=== PATIENT | male | born 1980 | race Caucasian/White ===

== ENCOUNTER → 2022-07-07 14:43 | Outpatient (BNVA) | payer OTHER, SELFPAY | PROVIDERS: PCP Internal Medicine; Visit Provider Nurse Practitioner Family ==

== ENCOUNTER → 2022-07-28 20:27 | Outpatient (REF) | payer OTHER, SELFPAY | LOC: HO.SL 20:27 | PROVIDERS: PCP Internal Medicine; Visit Provider Nurse Practitioner Family | DX: G47.33 Obstructive sleep apnea (adult) (pediatric) (principal); G47.52 REM sleep behavior disorder; F51.4 Sleep terrors [night terrors] | CPT/HCPCS: 95810 ==

== ENCOUNTER 2023-02-20 12:46 | Outpatient (REF) | payer BC, SELFPAY ==
[2023-02-20 13:03] LABS: MANUAL DIFF FLAG NO
[2023-02-20 13:14] LABS: Basophils Absolute Auto 0.1 X10*3/uL (0.0-0.2); Basophils Percent Auto 0.8 % (0-2); Eosinophils Absolute Auto 0.1 X10*3/uL (0.0-0.4); Eosinophils Percent Auto 1.6 % (0-4); Hematocrit 46.6 % (42.0-52.0); Hemoglobin 16.2 g/dl (14.0-18.0); Imm Gran Abs Auto 0.04 X10*3/uL (0.00-0.03); Imm Gran Pct Auto 0.5 % (0.0-0.4); Lymphocytes Absolute Auto 2.1 X10*3/uL (1.2-4.9); Lymphocytes Percent Auto 26.5 % (20-40); Mean Corpuscular HGB Conc 34.8 g/dl (31.0-36.0); Mean Corpuscular Volume 83.5 fL (80.0-98.0); Mean Platelet Volume 9.7 fL (9.4-12.4); Monocytes Absolute Auto 0.4 X10*3/uL (0.1-1.2); Monocytes Percent Auto 5.3 % (2-11); Neutrophils Absolute Auto 5.2 x10*3/uL (2.0-8.3); Neutrophils Percent Auto 65.3 % (45-73); Platelet Count 219 X10*3/uL (160-400); Red Blood Count 5.58 X10*6/uL (4.60-5.80)
[2023-02-20 13:57] LABS: Alanine Aminotransferase 31 U/L (0-40); Albumin Level 4.6 g/dL (3.5-5.0); Alkaline Phosphatase 119 U/L (39-117); Anion Gap 11 (12-20); Aspartate Amino Transferase 25 U/L (5-37); Bilirubin Total 0.9 mg/dL (0.0-1.0); Blood Urea Nitrogen 8 mg/dL (9-16); Calcium 9.9 mg/dL (8.4-10.2); Carbon Dioxide 30 mmol/L (22-29); Chloride 103 mmol/L (96-108); Estimated Glomerular Filt Rate > 60; Glucose Fasting 107 mg/dL (60-99); Potassium 4.2 mmol/L (3.3-5.1); Sodium 140 mmol/L (135-145); Total Protein 8.1 g/dL (6.5-8.0)
[2023-02-20 14:06] LABS: Free T4 (Free Thyroxine) 0.74 ng/dL (0.71-1.85); Thyroid Stimulating Hormone 1.67 uIU/mL (0.32-4.0); Vitamin D 25-OH Total 8.3 ng/mL (>30)
[2023-02-20 14:09] LABS: Vitamin B12 251 pg/mL (200-900)
[2023-02-23 02:54] LABS: Zinc 87 mcg/dL (60-130)
== END 2023-02-20 12:47 | disposition home or self-care (01) ==
LOC: HO.LAB 12:46
PROVIDERS: Visit Provider Psychiatry & Neurology Psychiatry
DX: F32.9 Major depressive disorder, single episode, unspecified (principal)
CPT/HCPCS: 36415; 80053; 82306; 82607; 84439; 84443; 84630; 85025

== ENCOUNTER → 2023-02-24 13:56 | Outpatient (REF) | payer BC, SELFPAY ==
--- NOTE | 2023-02-24 14:09 | ECG_ITS ---
Test Reason : QTC CHECK Blood Pressure : / mmHG Vent. Rate : 077 BPM Atrial Rate : 077 BPM P-R Int : 174 ms QRS Dur : 088 ms QT Int : 368 ms P-R-T Axes : 070 037 049 degrees QTc Int : 416 ms Normal sinus rhythm Normal ECG No previous ECGs available Referred By: Nicolette Rubio Electronically Signed By:CHUCHO JOHNSON
== END ==
LOC: HO.CARD 13:56
PROVIDERS: Visit Provider Psychiatry & Neurology Psychiatry
DX: F33.1 Major depressive disorder, recurrent, moderate (principal); F41.1 Generalized anxiety disorder
CPT/HCPCS: 93005

== ENCOUNTER → 2023-02-24 14:09 | Outpatient (BNV) | payer BC, SELFPAY | PROVIDERS: Visit Provider Internal Medicine | DX: I45.81 Long QT syndrome (principal) | CPT/HCPCS: 93010 ==

== ENCOUNTER 2023-02-27 11:40 | Outpatient (REF) | payer BC, SELFPAY ==
[2023-02-27 12:44] LABS: Estimated Average Glucose 100 mg/dL; Hemoglobin A1c % 5.1 % (<6.0)
[2023-02-27 13:08] LABS: Cholesterol 182 mg/dL (<200); Gamma Glutamyl Transpeptidase 68 U/L (11-51); HDL Cholesterol 37 mg/dL (>40); LDL Cholesterol Calculated 112 mg/dL (<100); Triglycerides 166 mg/dL (<150)
== END 2023-02-27 11:41 | disposition home or self-care (01) ==
LOC: HO.LAB 11:40
PROVIDERS: PCP Internal Medicine; Visit Provider Psychiatry & Neurology Psychiatry
DX: F33.1 Major depressive disorder, recurrent, moderate (principal); F41.1 Generalized anxiety disorder
CPT/HCPCS: 36415; 80061; 82977; 83036

== ENCOUNTER → 2023-02-28 09:15 | Outpatient (BNV) | payer BC, SELFPAY | PROVIDERS: Visit Provider Psychiatry & Neurology Psychiatry | DX: F33.1 Major depressive disorder, recurrent, moderate (principal); F41.1 Generalized anxiety disorder; G47.33 Obstructive sleep apnea (adult) (pediatric) | CPT/HCPCS: 90792; 99213; 99214 ==

== ENCOUNTER 2023-03-07 10:15 | Outpatient (RCR) | payer BC, SELFPAY ==
[2023-02-15 11:58] VITALS: BMI 27.4
--- NOTE | 2023-02-15 13:01 | PC.ADMIT ---
Patient is a 42 year old male who was referred to [facility] by [facility] where he was admitted from 02/07-02/11/23 d/t increased depression, severe anxiety, and experiencing night terrors where he has fallen out of bed as a result. Patient reports many triggers including father passing, roommate moving out, and new job where he stated he does not feel confident in himself and he is afraid to make mistakes as he is a perfectionist. Patient stated he was going out with friends on Fridays and would drink 8 drinks when he is feeling better however has not done this in a few months d/t his mental health symptoms. He was educated verbally and was given written information on ETOH and his health and binge drinking. Patient is currently on FMLA from work d/t symptoms and is at [facility] to work on his mental health. He reviewed with me some medication changes including he is tapering off of Celexa and is on new medication Wellbutrin. He reports taking medications as prescribed. Patient also has a f/u appointment with his PCP on 02/27/23 regarding HTN as he saw his PCP last Monday and reports his BP was elevated. Current BP 150/96 P 80. Patient is alert and oriented x4. calm and cooperative. Presented with depressed mood and anxious affect. Denied SI or thoughts of harming himself. He was given a copy of his safety plan if needed. Medications reconciled with patient and paperwork from [facility] with active orders dated 02/11/22 and confirmed with patient. He reports taking medications as prescribed.
[2023-02-15 13:02] VITALS: BP 150/96; PULSE 80
--- NOTE | 2023-02-16 17:36 | HO.PHP ---
Clients case has been opened and reviewed in treatment teams.
--- NOTE | 2023-02-16 18:04 | P.HPPSP_ITS ---
HPI Date of Service: 02/16/23 Chief Complaint: anxiety Sources of Information: patient interviewed, chart reviewed and crisis/core team assessment reviewed HPI Narrative: Patient is a 42 year old male with history of anxiety, depression who reports exacerbation in recent months related to work stressors and parental loss. He is known to [facility] for outpatient MH treatment and is being stepped up to [facility] from recent stay at [facility] where he was started on Wellbutrin XL 150 mg. He is currently working with an outpatient therapist and anticipates meeting with his new psychiatric provider tomorrow at 2pm. He reports working at [employer] since 08/2022 which has been a huge source of anxiety and stress, working outside of his comfort zone. Reports a lot of generalized anxiety, overthinking, as well as feeling stressed, muscle tension, exhaustion, describes feeling demoralized, experiencing negative self thoughts, cognitive distortions, catastrophizing and feeling overly concerned about being judged by others. 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 Reports severe depression which he contributes to recent loss of his father and feeling like a failure due to struggles at his current job, but denies any thoughts of giving up on life or harming self or others. He was recently seen by a provider during a stay at [facility] from 02/07 to 02/11 after being referred there from [facility]. He had been on citalopram 40 mg (since September) which was not effective, and the provider at [facility] switched him over to Wellbutrin XL. He gradually tapered off the citalopram this past week and is on his last dose of 20 mg. He has not noticed any considerable benefits yet on the Wellbutrin XL 150 mg, but complains of some tiredness. It is unclear why this medication was chosen (he does not have a history of ADHD, nor considerable depressive symptoms) nonetheless we agree to give it another week seeing as it does not seem to be worsening his anxiety or sleep. He was also ntoed to be started on prazosin 2 mg qhs for night terrors (kicks and punches in his sleep). He denies any trauma or PTSD symptoms. He has not foudn this medication so far. Past Psychiatric History: No history of IP hospitalizations, PHP or detox admissions Denies hx of suicide attempts, suicidal or self harming behaviors. He does not usually struggle with SI Denies hx of aggression Upcoming appointment with new psych provider - Marla Shin CNP - tomorrow afternoon Connected with outpatient therapy Previous med trials: citalopram, sertraline, diazepam CURRENT MEDICATIONS: Wellbutrin XL 150 mg qAM prazosin 2 mg qhs hydroxyzine 50 mg PRN sleep, anxiety [facility] Medical History (Updated 03/03/23 @ 08:55 by Darline Mayers RN) History of vitamin D deficiency GERD (gastroesophageal reflux disease) Elevated blood pressure reading Sleep apnea Surgical History (Updated 07/07/22 @ 14:55 by [place]) Hx of appendectomy Family History: father passed from heart disease, no MH hx Social History: Lives at home with parents. His parents winter in [place] although his father unexpectedly 11/30, mom has remained in [place] since then. Graduated HS 1998, spent a year at [employer] in [place], had a good experience but did not like living away from home. He has since moved back home and completed college online at [employer] in 01/2003. Substance History: Alcohol use: socially on occasion, denies drinking regularly. denies binging, denies hx withdrawals or DTs, no DUIs. last use a couple weeks ago Nicotine use: varies, uses socially, or periods when stressed. not regular. last time a few days ago Cannabis use: infrequent, once every few months. last time >2 months ago Remote cocaine use recreational, denies other illicit substances. No IVDA Trauma History: Reports still grieving recent loss of his father 11/2022 Diagnostics Vital Signs (24Hr): BMI result Body Mass Index 27.4 Meds/Allergies Meds Home Medications Medication Instructions Recorded Confirmed Type omeprazole 20 mg capsule,delayed 20 mg PO DAILY 07/07/22 02/15/23 History release cholecalciferol (vitamin D3) 25 25 mcg PO DAILY 02/15/23 02/15/23 History mcg (1,000 unit) capsule (Vitamin D3) Allergies Allergies Allergy/AdvReac Type Severity Reaction Status Date / Time No Known Allergies Allergy Verified 07/07/22 14:54 Mental Status Exam Mental Status Exam Narrative: Alert, oriented, in no acute distress. Calm, cooperative, engaged. No psychomotor agitation or neurovegetative retardation. Eye contact maintained. Mood anxious, depressed, affect variable, brighter than expected. Speech normal. Thought process linear, coherent. Thought content related to stressors, transient hopelessness, denies SI or HI. No paranoia or delusional content elicited. No evidence of psychosis. Insight and judgment impaired. Assessment & Plan Assessment & Plan (1) MDD (major depressive disorder), recurrent episode, moderate: Status: Acute Code(s): F33.1 - Major depressive disorder, recurrent, moderate (2) ARMANDO (generalized anxiety disorder): Status: Acute Code(s): F41.1 - Generalized anxiety disorder Plan Admit to [facility] continue reguular medications for now pt scheduled with new outpatient psych provider, appointment on Monday routine lab work ordered ASRS reviewed continue to monitor as per protocol Patient educated on: diagnosis, medication risk/benefits and substance abuse Informed Consent: understands Reason for continued partial hosp. stay Substantial Risk for: inability to function, rapid decompensation and med/psych decompensation Certification I certify that partial hospital treatment is medically necessary due to the symptoms and problems resulting from the patient's mental illness and the failure to treat the patient at the partial hospital level of care would likely result in the patient requiring inpatient psychiatric care which could not be prevented at a less intensive level of care. Time Spent With Patient Time: Total time managing care of this patient today _60___ minutes.
--- NOTE | 2023-02-21 08:14 | HO.PHP ---
Ignacio contacted the program to inform staff that he would not be in attendance to program due to the inclement weather. Ignacio reported no SI,plan or intent and stated he is safe. Ignacio will be in attendance to program tomorrow.
[2023-02-24 15:11] VITALS: BP 166/105; PULSE 81; RESP 16
--- NOTE | 2023-02-24 22:23 | P.PNPSP_ITS ---
Subjective Subjective Date of Service: 02/24/23 Reason For Visit: anxiety Interim History: I still feel very anxious Patient reports groups are helpful and enjoys coming but admits he is really struggling with his anxiety and reflecting on our discussion last week; he has been considering whether the Wellbutrin he was started on in [facility] 3 weeks ago is actually exacerbating his anxiety. He is not sure but he is certain it has not helped his anxiety at all. He met with his new provider last week, however she did not make any changes to his medications and said she would defer managing treatment while he remains in the program. He continues on Wellbutrin XL 150 mg as well as the prazosin 2 mg qhs which was started at [facility]. He is still struggling to get sleep, Reports delayed onset due to anxiety and ruminating at night, as well as sleep disrupted by sleep terrors and stress dreams. The prazosin has not been helpful for his dreams and he is agreeable to having this provider make medication changes. He reports haivng both somatic anxiety (muscle tension, increased heart rate, feeling stressed and nervous) as well as cognitive anxiety and is prone to overthinking, worrying and describes a long history of being predisposed to anxiety. Much of his thoughts are involve anxiety about the future, existential angst, and conflicted identity issues (about who he is vs who he feels he should be, or conflicts around his personal preferences vs what he thinks he should be doing, pressure of living under high expectations set by his family and himself. Shares a profound fear of failure, It's almost engrained in me...I gotta get a good job. I mask a lot... I'm afraid to fail, so I keep pushing myself, but I also don't want to keep feeling this way about my life, . He reports his mood is mostly highly anxious, sometimes feels irritable and tired. His frustration tolerance gets low, he says he went off on one of his friends this weekend who was being too demanding. Energy is low. He has a history of sleep apnea but apparently he was told it's mild and doesnt need to be on cpap. He has been eating regularly. He went out with friends this weekend. He denies any alcohol or substance use, says he occasionally drinks but has not been drinking since he has been struggling with his mental health. In fact he says that was the first time he has socialized in a number of weeks. It is noted that his BP last week was 150/96, I will have the nurse recheck his BP today. Likely the Wellbutrin is at the very least contributing to the elevated blood pressure. He denies being treated for hypertension in the past, although has been known to have a couple of high blood pressure readings in the past, but says his PCP never suggested starting treatment. is agreeable with plan to discontinue Wellbutrin and prazosin and switching over to Abilify and guanfacine. Will also offer clonazepam as a bridge to help w anxiety and sleep until anxiety is better controlled. He endorses feeling of hopelessness, but denies any thoughts of giving up on life, denies SI. No t hougths of harming self or others. Medication Compliance: Yes Side effects from medications: Yes (as noted above) Attending Groups: Yes Mental Status Exam Mental Status Exam Narrative: Alert, oriented, in no acute distress. Stressed, otherwise cooperative, engaged. Tense, but no psychomotor agitation or neurovegetative retardation. Eye contact maintained. Mood anxious, depressed, affect anxious, constricted. Speech normal. Thought process linear, coherent. Thought content related to stressors, +obsessive anxiety, +ruminating, +racing thoughts/overthinking, +transient hopelessness, denies SI or HI. No paranoia or delusional content elicited. No evidence of psychosis. Insight and judgment fair but adequate. Diagnostics Vital Signs (24Hr): Vital Signs - 24 hr 02/24/23 15:11 Pulse Rate 81 Respiratory Rate 16 Blood Pressure 166/105 H BMI result Body Mass Index 27.4 EKG EKG: reviewed EKG Comment: Patient: Ignacio Quiles Ordering Physician: Nicolette Rubio MD Date of Service: 02/24/23 Procedure(s): ECG 12 lead EKG Accession Number(s): [id number] cc: Nicolette Rubio MD~ Test Reason : QTC CHECK Blood Pressure : / mmHG Vent. Rate : 077 BPM Atrial Rate : 077 BPM P-R Int : 174 ms QRS Dur : 088 ms QT Int : 368 ms P-R-T Axes : 070 037 049 degrees QTc Int : 416 ms Normal sinus rhythm Normal ECG No previous ECGs available Assessment & Plan Assessment & Plan (1) ARMANDO (generalized anxiety disorder): Status: Acute Code(s): F41.1 - Generalized anxiety disorder (2) Other obsessive-compulsive disorder: Status: Acute Code(s): F42.8 - Other obsessive-compulsive disorder (3) MDD (major depressive disorder), recurrent episode, moderate: Status: Acute Code(s): F33.1 - Major depressive disorder, recurrent, moderate (4) Obsessive-compulsive personality trait: Status: Acute Code(s): R46.89 - Other symptoms and signs involving appearance and behavior Plan VS reviewed - today BP 166/105 (pt complained of some sob to RN, possibly feeling more anxious from high BP reading (?) EKG ordered, pt agreed to get this done today will discontinue Wellbutrin XL start Abilify at 1 mg qd (1/2 of 2 mg tablet) for 2 days, if tolerated may increase to one tablet daily (to target obsessive anxiety, intrusive thoughts) start guanfacine ER 1 mg daily in evening, to target overthinking/anxiety in evening/night and sleep discontinue prazosin (ineffective) patient may start guanfacine ER qd in AM given HTN, somatic anxiety hold trazodone (given interactions with Abilify) will offer short trial of clonazepam 0.5-1 mg qd PRN breakthrough anxiety, ins omnia consider buspirone trial vs Lexapro vs other AD Patient educated on: diagnosis and medication risk/benefits Informed Consent: understands Reason for contiued partial hosp. stay Substantial Risk for: inability to function, rapid decompensation and med/psych decompensation Certification I certify that partial hospital treatment is medically necessary due to the symptoms and problems resulting from the patient's mental illness and the failure to treat the patient at the partial hospital level of care would likely result in the patient requiring inpatient psychiatric care which could not be prevented at a less intensive level of care. Total time managing care of this patient today __30__ minutes. Discharge Plan Discharge Attending provider: Nicolette Rubio Medications: New guanfacine 1 mg tablet 1 mg PO DAILY Qty: 30 0RF ergocalciferol (vitamin D2) [Vitamin D2] 1,250 mcg (50,000 unit) capsule 1,250 mcg PO QWEEK Qty: 8 0RF Continued aripiprazole 2 mg tablet 2 mg PO BEDTIME 30 Days Qty: 30 0RF omeprazole 20 mg capsule,delayed release(DR/EC) 20 mg PO DAILY Changed hydroxyzine HCl 50 mg tablet 50 mg PO BID PRN (Reason: Anxiety, sleep) Qty: 30 0RF Discontinued prazosin 1 mg capsule 2 mg PO BEDTIME Rx Instructions: Take 2 tabs to equal 2 mg at Bedtime. bupropion HCl 150 mg tablet extended release 24 hr 150 mg PO QAM citalopram 20 mg tablet See Rx Instructions .ROUTE .COMPLEX Rx Instructions: Patient tapering off this medication. Taking 20 mg daily x 7 days then taking 10 mg daily x 7 days then take 5 mg daily for 7 days. No Action cholecalciferol (vitamin D3) [Vitamin D3] 25 mcg (1,000 unit) Capsule 25 mcg PO DAILY Stand Alone Forms: Patient Portal Discharge page Patient Education: Depression (ED), Generalized Anxiety Disorder (ED)
[2023-02-27 14:09] VITALS: BP 128/82; PULSE 64
--- NOTE | 2023-02-28 22:36 | P.PNPSP_ITS ---
Subjective Subjective Date of Service: 02/28/23 Reason For Visit: anxiety Interim History: Patient has started on 1/2 tablet of ABilify in the evenings for past 3 days, denies any issues. He has also started on guanfacine 1 mg BID. (He had stopped the prazosin after Mon as we had discussed) His EKG from Monday was unremarkable (I called him Mon night to relay this to him) He initially noted some dizziness, most of the day, now it's kind of subsiding which was suprising to hear given how elevated his blood pressure has been. He has a history of hypertensive BPs although has not been formally treated. He feels a little calmer now with the guanfacine and we will give him a couple days to adjust and recheck VS and consider further titration if tolerated. Mood still low. Denies SI. Sleep has improved modestly with addition of guanfacine as well as Klonopin at night (although BZD is only a temporary plan to provide some relief and he says he does feel less exhausted in the AM. Following our discussion he decided to reach out to his PCP and see about getting worked up fo r sleep apnea. His snoring apparently has been problematic to others as well as himself. He was told he would basically have to pay out of pocket for the study because his deductible is $2000. We are still considering whether to start an antidepressant vs buspirone. He has not had much success thus far with antidepressant therapy x3 trials. Medication Compliance: Yes Side effects from medications: No Attending Groups: Yes Review of Systems Acute medical concerns: No Mental Status Exam Mental Status Exam Narrative: Alert, oriented, in no acute distress. Calm, cooperative, engaged. No psychomotor agitation or neurovegetative retardation. Eye contact maintained. Mood anxious, depressed, affect variable, brighter than expected. Speech normal. Thought process linear, coherent. Thought content related to stressors, denies hopelessness, denies SI or HI. No paranoia or delusional content elicited. No evidence of psychosis. Insight and judgment impaired. Diagnostics Vital Signs (24Hr): BMI result Body Mass Index 27.4 Assessment & Plan Assessment & Plan (1) MDD (major depressive disorder), recurrent episode, moderate: Status: Acute Code(s): F33.1 - Major depressive disorder, recurrent, moderate (2) ARMANDO (generalized anxiety disorder): Status: Acute Code(s): F41.1 - Generalized anxiety disorder (3) KARYNA (obstructive sleep apnea): Status: Acute Code(s): G47.33 - Obstructive sleep apnea (adult) (pediatric) (4) Obsessive-compulsive personality trait: Status: Acute Code(s): R46.89 - Other symptoms and signs involving appearance and behavior Plan increase ABilify to 2 mg/d continue guanfacine 1 mg BID continue clonazepam 1 mg qhs PRN consider buspirone trial vs Lexapro vs other AD Patient educated on: diagnosis and medication risk/benefits Informed Consent: understands Reason for contiued partial hosp. stay Substantial Risk for: inability to function, rapid decompensation and med/psych decompensation Certification I certify that partial hospital treatment is medically necessary due to the symptoms and problems resulting from the patient's mental illness and the failure to treat the patient at the partial hospital level of care would likely result in the patient requiring inpatient psychiatric care which could not be prevented at a less intensive level of care. Total time managing care of this patient today _30___ minutes. Discharge Plan Discharge Attending provider: Nicolette Rubio Medications: New guanfacine 1 mg tablet 1 mg PO DAILY Qty: 30 0RF aripiprazole 2 mg tablet 2 mg PO BEDTIME Qty: 20 0RF ergocalciferol (vitamin D2) [Vitamin D2] 1,250 mcg (50,000 unit) capsule 1,250 mcg PO QWEEK Qty: 8 0RF clonazepam 1 mg tablet 1 mg PO BEDTIME PRN (Reason: sleep) Qty: 14 0RF Rx Instructions: administer 30 minutes before bedtime Continued hydroxyzine HCl 50 mg tablet 50 mg PO TID PRN (Reason: Anxiety) omeprazole 20 mg capsule,delayed release(DR/EC) 20 mg PO DAILY Discontinued bupropion HCl 150 mg tablet extended release 24 hr 150 mg PO QAM citalopram 20 mg tablet See Rx Instructions .ROUTE .COMPLEX Rx Instructions: Patient tapering off this medication. Taking 20 mg daily x 7 days then taking 10 mg daily x 7 days then take 5 mg daily for 7 days. No Action prazosin 1 mg capsule 2 mg PO BEDTIME Rx Instructions: Take 2 tabs to equal 2 mg at Bedtime. cholecalciferol (vitamin D3) [Vitamin D3] 25 mcg (1,000 unit) Capsule 25 mcg PO DAILY Stand Alone Forms: Patient Portal Discharge page Patient Education: Depression (ED), Generalized Anxiety Disorder (ED)
[2023-03-03 12:33] VITALS: BP 124/86; PULSE 72
--- NOTE | 2023-03-06 19:38 | P.PNPSP_ITS ---
Subjective Subjective Date of Service: 03/06/23 Reason For Visit: anxiety Interim History: Contiues to experience dizziness on a daily basis. Today however was better, didnt notice any in the morning, but by lunch he was noticing the dizziness returning. It has been occurring since starting the guanfacine. He was hoping he would adjust to it, seeing as his blood pressure has normalized. Will plan to hold AM dose tomorrow to see if limiting to HS dose will be managable. Otherwise he is doing well with the Abilify which is currently at 2 mg qhs. He reports his mood is good, excited about life again no longer dealing with a lot of anxiety. He denies utilizing any clonazepam in the past 3 days on account of having some drinks this weekend with friends. I question him about his drinking habits given recent lab findings. He admits he drinks with more regularity than he initially reported. He reports having a high tolerance to alcohol and has been drinking most weekends over the past 20 years. He is aware of risk of using BZD and alcohol, but generally is better to avoid further BZD use as this can further complicate alcohol use/tolerance. Will plan to return him to using hydroxyzine for sleep. Medication Compliance: Yes Side effects from medications: Yes (as noted) Attending Groups: Yes Review of Systems Acute medical concerns: No Mental Status Exam Mental Status Exam Narrative: Alert, oriented, in no acute distress. Calm, cooperative, engaged. No psychomotor agitation or neurovegetative retardation. Eye contact maintained. Mood better, affect variable, brighter. Speech normal. Thought process linear, coherent. Thought content related to stressors +concerns re dizziness and med AE, denies hopelessness, denies SI or HI. No paranoia or delusional content elicited. No evidence of psychosis. Insight and judgment impaired. Diagnostics Vital Signs (24Hr): BMI result Body Mass Index 27.4 Assessment & Plan Assessment & Plan (1) ARMANDO (generalized anxiety disorder): Status: Acute Code(s): F41.1 - Generalized anxiety disorder (2) MDD (major depressive disorder), recurrent episode, moderate: Status: Acute Code(s): F33.1 - Major depressive disorder, recurrent, moderate (3) Obsessive-compulsive personality trait: Status: Acute Code(s): R46.89 - Other symptoms and signs involving appearance and behavior (4) Alcohol abuse: Status: Acute Code(s): F10.10 - Alcohol abuse, uncomplicated Plan will hold AM dose of guanfacine 1 mg continue Abilify 2 mg qd discontinue clonazepam - pt had not been forthcoming about alcohol use (added to problem list) may continue hydroxyzine 50 mg qhs PRN sleep continue to monitor Telehealth Location of provider rendering services: other (private office) Location of patient: other ([facility]) Patient Identification confirmed using: Name, : Yes Telehealth method: video Patient verbally consented to treatment: Yes Minutes spent on Phone/Video with Pt.: 30 Patient educated on: diagnosis, medication risk/benefits and substance abuse Informed Consent: understands Reason for contiued partial hosp. stay Substantial Risk for: med/psych decompensation Certification I certify that partial hospital treatment is medically necessary due to the symptoms and problems resulting from the patient's mental illness and the failure to treat the patient at the partial hospital level of care would likely result in the patient requiring inpatient psychiatric care which could not be prevented at a less intensive level of care. Total time managing care of this patient today __30__ minutes. Discharge Plan Discharge Attending provider: Nicolette Rubio Medications: New guanfacine 1 mg tablet 1 mg PO DAILY Qty: 30 0RF ergocalciferol (vitamin D2) [Vitamin D2] 1,250 mcg (50,000 unit) capsule 1,250 mcg PO QWEEK Qty: 8 0RF Continued aripiprazole 2 mg tablet 2 mg PO BEDTIME 30 Days Qty: 30 0RF omeprazole 20 mg capsule,delayed release(DR/EC) 20 mg PO DAILY Changed hydroxyzine HCl 50 mg tablet 50 mg PO BID PRN (Reason: Anxiety, sleep) Qty: 30 0RF Discontinued prazosin 1 mg capsule 2 mg PO BEDTIME Rx Instructions: Take 2 tabs to equal 2 mg at Bedtime. bupropion HCl 150 mg tablet extended release 24 hr 150 mg PO QAM citalopram 20 mg tablet See Rx Instructions .ROUTE .COMPLEX Rx Instructions: Patient tapering off this medication. Taking 20 mg daily x 7 days then taking 10 mg daily x 7 days then take 5 mg daily for 7 days. No Action cholecalciferol (vitamin D3) [Vitamin D3] 25 mcg (1,000 unit) Capsule 25 mcg PO DAILY Stand Alone Forms: Patient Portal Discharge page Patient Education: Depression (ED), Generalized Anxiety Disorder (ED)
--- NOTE | 2023-03-07 23:07 | HO.PHPPROGNO ---
Subjective Subjective Date of Service: 03/07/23 Reason For Visit: anxiety Interim History: Patient seen for follow-up, he has completed the program and anticipates discharge at the end of the program today. He reports feeling better. He took guanfacine ER 1 mg QHS as usual last night, but held the AM dose this morning. He has no further dizziness and is agreeable to continuing at HS only. He also stopped using trazodone as we discussed (concerning drug-drug interactions with ABilify and with hydroxyzine - increasing risk for cardiac arrhythmias). Given his history of hypertension and FH of cardiac disease (his father from [place]), we decided to discontinue trazodone and simplify medication regime. He instead took hydroxyzine and was able to fall asleep easily. He reports his mood is stable, denies any hopelessness or SI, and anxiety continues to be much better since starting on Abilify. He is looking forward to some changes in his line of work. He anticipates switching back to [employer] and has an opening to shadow someone at [email or web address] and [employer] tomorrow. If all goes well, he plans to resign from his job at [employer] which had been the source of much of his anxiety in recent months. Will plan to continue Abilify at 2 mg qd, and utilize hydroxyzine for sleep rather than anxiety, now that anxiety is much better managed with the ABilify and Intuniv. BID Intuniv was also helping to normalize his heart rate and blood pressure (improved from ~155/100 to ~120s/80s, however he was unable to tolerate BID dosing due to dizziness. His next PCP appointment is in 6 months, but he was advised to call and make an earlier appointment to follow up on his blood pressure. Diagnostics Vital Signs (24Hr): BMI result Body Mass Index 27.4 Assessment & Plan Assessment & Plan (1) ARMANDO (generalized anxiety disorder): Status: Acute Code(s): F41.1 - Generalized anxiety disorder (2) MDD (major depressive disorder), recurrent episode, moderate: Status: Acute Code(s): F33.1 - Major depressive disorder, recurrent, moderate (3) Alcohol abuse: Status: Acute Code(s): F10.10 - Alcohol abuse, uncomplicated (4) Obsessive-compulsive personality trait: Status: Acute Code(s): R46.89 - Other symptoms and signs involving appearance and behavior Plan Discharge from [facility] continue current medications including: Abilify 2 mg qd guanfacine ER 1 mg qhs hydroxyzine 50 mg qhs PRN sleep weekly vitamin D3 79816 IU x [address] 20 mg qd pt advised to follow up w PCP re blood pressure hanna discontinued: Celexa, Wellbutrin, prazosin, trazodone will defer further medication management to outpatient provider next appointment with Marla is on Mar 16 at 11am Patient educated on: diagnosis, medication risk/benefits and substance abuse Informed Consent: understands Certification I certify that partial hospital treatment is medically necessary due to the symptoms and problems resulting from the patient's mental illness and the failure to treat the patient at the partial hospital level of care would likely result in the patient requiring inpatient psychiatric care which could not be prevented at a less intensive level of care. Total time managing care of this patient today __30__ minutes. Discharge Plan Discharge Attending provider: Nicolette Rubio Medications: New guanfacine 1 mg tablet 1 mg PO DAILY Qty: 30 0RF ergocalciferol (vitamin D2) [Vitamin D2] 1,250 mcg (50,000 unit) capsule 1,250 mcg PO QWEEK Qty: 8 0RF Continued aripiprazole 2 mg tablet 2 mg PO BEDTIME 30 Days Qty: 30 0RF omeprazole 20 mg capsule,delayed release(DR/EC) 20 mg PO DAILY Changed hydroxyzine HCl 50 mg tablet 50 mg PO BID PRN (Reason: Anxiety, sleep) Qty: 30 0RF Discontinued prazosin 1 mg capsule 2 mg PO BEDTIME Rx Instructions: Take 2 tabs to equal 2 mg at Bedtime. bupropion HCl 150 mg tablet extended release 24 hr 150 mg PO QAM citalopram 20 mg tablet See Rx Instructions .ROUTE .COMPLEX Rx Instructions: Patient tapering off this medication. Taking 20 mg daily x 7 days then taking 10 mg daily x 7 days then take 5 mg daily for 7 days. No Action cholecalciferol (vitamin D3) [Vitamin D3] 25 mcg (1,000 unit) Capsule 25 mcg PO DAILY Stand Alone Forms: Patient Portal Discharge page Patient Education: Depression (ED), Generalized Anxiety Disorder (ED)
== END 2023-03-07 23:59 | disposition home or self-care (01) ==
LOC: HO.PHPA 10:15
PROVIDERS: Visit Provider Psychiatry & Neurology Psychiatry
DX: F33.1 Major depressive disorder, recurrent, moderate (principal); F41.1 Generalized anxiety disorder; F10.10 Alcohol abuse, uncomplicated; G47.33 Obstructive sleep apnea (adult) (pediatric); Z79.899 Other long term (current) drug therapy
CPT/HCPCS: 90791; 90853